=== PATIENT | male | born 1945 | race Caucasian/White ===

== ENCOUNTER → 2022-04-25 | Outpatient (CLI) | payer MEDICARE, BC ==
[2022-04-25 09:53] VITALS: BP 125/76; PULSE 56; RESP 16; TEMP 98.2
--- NOTE | 2022-04-25 15:26 | P.PAINPG ---
PQRS Measure Charge Sheet Comment: HISTORY OF PRESENT ILLNESS: 76 yr old male as a referral from Dr Capps presents today w severe and chronic LBP x 2 yrs secondary to for evaluation. Pt states pain level is at 10 /10 in intensity, constant, localized in the lower aspect of the lumbar spine, localized in the lower lumbar spine, sharp in character w shooting pain towards the BL glutes. Pain is provoked by home exercise regimen. Pain is alleviated by meds (Maxie 5/325mg, Mobic), OTC pain patches, repositioning and rest. PMH: OA, HTN, Hypercholesterolemia, Hypothyroidism, Nephrolithiasis, Vitamin D Deficiency, GERD, Parkinsons Disorder, Dementia PSH: Hernia Repair, Cholecystectomy, Knee Surgery, Prostate CA Resection SH: Occasional ETOH use, No tobacco use, No illicit drug use FH: HTN, DM. All: See list Meds: ASA, Mobic REVIEW OF ORGAN SYSTEMS: CONSTITUTIONAL: No fevers or chills. No recent weight loss. NEUROLOGICAL: + numbness and tingling along the distal extremities. No seizure disorders or headaches. MUSCULOSKELETAL: + pain PSYCHIATRIC: Denies current depression or suicidal thoughts. Physical Examinations : Constitutional : Cooperative , not in acute distress . Neurologic : Cranial nerve II to XII intact. No focal neurological deficits. Psychiatric : alert & oriented x 3. Matching mood & appropriate affect. Judgment & insight intact. Musculoskeletal : Cervical Spine Motor strength in the deltoid and biceps: Normal right side. Normal Left side Motor strength biceps and the wrist extensors: Normal right side . Normal left side Motor strength in the triceps muscle: Normal right side. Normal left side Deep tendon reflexes: Normal at the biceps. Normal at Brachioradialis. Normal at triceps Vertebral body tenderness to deep palpation over Cervical facet loading test: positive bilaterally Spurling test: positive bilaterally Neck distraction test: positive bilaterally Greer sign: positive bilaterally Lumbar spine Motor strength lower extremities ,thigh and legs 5/5 Right side , 5/5 Left side Deep tendon reflexes : Normal Knee Jerk. Normal Ankle Jerk Vertebral body tenderness over L1 Lumbar facet Loading Test: positive Right / positive Left Range of motion of the lumbar spine Flexion 30 degrees, extension 10 degrees Straight Leg Raise test: Left/ Right positive at degree Emerson test: positive right / positive left. Severe tenderness over the Sacroiliac joint on the Right / Left sides Gaenslen test: positive bilaterally Seated flexion test: positive bilaterally. Sacral spine : Severe tenderness over the Sacroiliac joint: right side / left side Range of motion: Flexion of the lumbar spine <60 degrees Range of motion: Extension of the lumbar spine <20 degrees Gaenslen's Test positive Tien's Test positive Emerson test: positive right side / left side Thigh Thrust Test Sacral Thrust Test Imaging: MRI with and without contrast of the lumbar spine, sacrum and coccyx from 03/18/22 reviewed Assessment/ Plan : Lumbar DDD Recommendation of NANCY L1-L2 injections. May need a series, up to 3 within a 6mo period, for optimal pain relief. Risks, benefits of procedure discussed and patient verbalized understanding. Admits to aspirin or anti- coagulant use or medical history of diabetes. Protocol for discontinuation/ continuation of medications lali procedure discussed. All questions answered. I have spent greater than 30 minutes on patient care today. Dr Batista was available by phone for the evaluation of this patient. The time was used to review the medical records including relevant urine studies and Prescription history (MAPs), review of the available imaging, evaluation and examination of the patient, coordination of care with the medical staff and if applicable referring physicians, as well as creation of the medical record Controlled Substance Measures - Controlled Substance Measures Is patient prescribed a controlled substance at discharge?: No
== END ==
LOC: PNWHC3 08:56
PROVIDERS: ATTEND Specialist
DX: M51.36 Other intervertebral disc degeneration, lumbar region (principal); M19.90 Unspecified osteoarthritis, unspecified site; I10 Essential (primary) hypertension; E78.00 Pure hypercholesterolemia, unspecified; K21.9 Gastro-esophageal reflux disease without esophagitis; G20 Parkinson's disease
CPT/HCPCS: 99202

== ENCOUNTER 2022-07-16 12:01 | Day surgery (SDC) | payer MEDICARE, BC ==
[2022-07-12 09:57] VITALS: BMI 32.5
[2022-07-16] MEDS ORDERED: LACTATED RINGERS 1,000 ML IV ONE ×2 (12:42)
[2022-07-16 12:44] VITALS: TEMP 98.2
--- NOTE | 2022-07-16 13:02 | P.PCN ---
Date of Procedure: 07/16/22 Procedure(s) Performed: PREOPERATIVE DIAGNOSIS: 1- Lumbar Degenerative Disc Diseases 2-Lumbar Radiculopathy. POSTOPERATIVE DIAGNOSIS: Same as preop diagnosis. PROCEDURE 1. Lumbar epidural steroid injection under fluoroscopic guidance at the L1-2 level. (Fluoroscopy imaging was available in radiology department) 2. Lumbar epidurogram. ANESTHESIA: moderate sedation with intravenous Versed 1 mg . Sedation start time : 1251 Sedation end time : 1257 EBL: Minimal PROCEDURE INDICATION: The patient with low back pain and radiculitis symptoms unresponsive to conservative treatment. Fluoroscopy was used to optimize vi sualization of the needle placement and to maximize safety. PROCEDURE DESCRIPTION / TECHNIQUE: The patient was seen and identified in the preoperative area. Risks, benefits, complications including but not limited to infections ,bleeding ,allergic reaction to the medications ,nerve damage and not complete pain releife , and alternatives were discussed with the patient. The patient agreed to proceed with the procedure and signed the consent. IV was started, and vital signs were stable. Patient was taken to the OR and time out was completed. The patient was placed in the prone position on procedure table and a pillow was placed under the abdomen to reduce lumbar lordosis. The lumbosacral area was prepped and draped in the usual sterile fashion.ere closely monitored during the procedure. Conscious sedation was used during the procedure to decrease patients anxiety. Vital signs was monitered during the entire procedure. Using anterior-posterior fluoroscopy, the L1-2 interlaminar space was identified and the skin over this site was marked and then infiltrated with 1% lidocaine subcutaneously. Subsequently, a 20-gauge Tuohy epidural needle was inserted and advanced toward the epidural space using the ``Loss of resistance technique and guided by AP and lateral fluoroscopy. The correct needle position in the epidural space was verified with the injection of 2 mL of the water soluble contrast dye Isovue 200 contrast and observing an excellent epidurogram with the epidural spread of the dye, after negative aspiration for blood and CSF and in the absence of paresthesias. Again after negative aspiration, a 6 ml mixture containing 40 mg of Depo-medrol ( Preservetive Free ), and 2 ml of preservative free Normal Saline, and 2 ml of preservative free lidocaine 1% solution was injected and a washout of epidurogram was seen. Needle was withdrawn intact, skin was cleansed, and bandages were applied. COMPLICATIONS: None DISPOSITION / PLANS: The patient was placed in a supine position and transferred to the recovery area in a stable condition for observation. There was no evidence of lower extremity motor or sensory deficit after the procedure. Patient was discharged from the recovery room after meeting discharge criteria. Home discharge instructions were given to the patient by the staff. The patient was reexamined prior to discharge. The patient will schedule a follow up in the clinic in 2-4 weeks.
[2022-07-16] MEDS ORDERED: IV FLUID CONTINUATION 1,000 ML IV ONE (13:03)
[2022-07-16] MEDS ORDERED: LACTATED RINGERS 1,000 ML IV SCH (13:13)
[2022-07-16] MEDS ORDERED: LIDOCAINE 1% (10MG/ML) FOR IV START INTRADERMA PRN (13:13)
[2022-07-16 13:19] VITALS: BP 100/64; PULSE 59; RESP 14
--- NOTE | 2022-07-16 13:44 | FL ---
EXAMINATION TYPE: FL guided pain mgmt statistic DATE OF EXAM: 07/16/2022 HISTORY: Fluoroscopy time DAP .[id number] of fluoroscopy provided. IMPRESSION: 1. Fluoroscopy time.
== END 2022-07-16 13:37 | disposition home or self-care (01) ==
LOC: ORPAIN 12:01
PROVIDERS: ATTEND Specialist
DX: M51.16 Intervertebral disc disorders with radiculopathy, lumbar region (principal); Z88.7 Allergy status to serum and vaccine
CPT/HCPCS: 62323

== ENCOUNTER → 2022-08-07 | Outpatient (CLI) | payer MEDICARE, BC ==
[2022-08-07 13:49] VITALS: BP 128/78; PULSE 68; RESP 18; TEMP 98
--- NOTE | 2022-08-07 14:59 | P.PAINPG ---
PQRS Measure Charge Sheet Comment: A 76 yr old male w at side with a history of severe and chronic LBP secondary to lumbar DDD and spondylosis with facet arthropathy without myelopathy presents today for evaluation s/p NANCY L1-L2. Pt states he experienced % pain relief x 3 wks s/p procedure. Pain level is provoked at 6 /10 in intensity, constant, localized in the lumbar spine, dull in character w shooting towards the BL thighs. Pain is provoked by movement, bending. Pain is alleviated with PT years ago, heat, topical, sitting, repositioning and rest. Interventional pain procedures completed include NANCY L1-L2 Patient is currently on topical pain patch Patient denies any side effects of the medication(s), denies excessive drowsi ness or sleepiness, denies suicidal ideation and reports that the current pain medication is helping to control the pain and improve activities of daily living. Patient denies any motor or sensory deficits. Patient denies any fever or night sweats, denies any change in the bowel movements or urination. Physical Examination: -Constitutional: Cooperative. Not in acute distress . - Neurologic: Cranial nerve II to XII intact. No focal neurological deficits. - Psychatric: Alert & oriented x 3. Matching mood & appropriate affect. Judgment and insight intact. - Musculoskeletal: Cervical spine: Muscle bulk/ tone/ strength in the bilateral upper extremities normal Vertebral body tenderness to palpation over Spurling test positive Distraction test positive Facet loading test positive TTP Thoracic spine Muscle bulk / tone/ strength in the bilateral paraspinal muscles normal Vertebral body tender to palpation over Facet loading test positive TTP Lumbar spine: Motor bulk/ tone/ strength lower extremities , thigh and legs : 5/5 Deep tendon reflexes : Normal Knee Jerk. Normal Ankle Jerk . Vertebral body tenderness to palpation over L2 Lumbar Facet Loading Test positive Straight Leg Raise: positive at 30 degrees right side/ left side Gaenslen's Test positive Sacral spine : Severe tenderness over the Sacroiliac joint: right side / left side Range of motion: Flexion of the lumbar spine <60 degrees Range of motion: Extension of the lumbar spine <20 degrees Gaenslen's Test positive right side / left side Emerson test: positive right side / left side Thigh Thrust Test positive right side / left side Sacral Thrust Test positive right side / left side Assessment and plan: Chronic LBP secondary to lumbar DDD, spondylosis with facet arthropathy without myelopathy Recommendation of NANCY L2-L3 #2. May need a series of injections for optimal pain relief. Risks, benefits of procedure discussed and pt verbalized understanding. Admits to anticoagulant use or medical history of diabetes. Protocol for discontinuation/ continuation of medications lali procedure discussed. Colbert 5/325mg #15 NR e scribed. Use, side effects, adverse reactions and safe storage discussed. Pt acknowledged understanding. All questions answered. I have spent less than 30 minutes on patient care today. Dr Batista was available by phone for the evaluation of this patient. The time was used to review the medical records including relevant urine studies and Prescription history (MAPs), review of the available imaging, evaluation and examination of the patient, coordination of care with the medical staff and if applicable referring physicians, as well as creation of the medical record PQRS Narrative: Hx Alcohol Use (MH) No Home Medications: Ambulatory Orders Aspirin EC [Ecotrin Low Dose] 81 mg PO DAILY 04/25/22 Atorvastatin Calcium [Lipitor] 40 mg PO DAILY 04/25/22 Carbidopa-Levodopa 25-100 mg [Sinemet 25-100] 1 each PO TID 04/25/22 Docusate [Colace] 100 mg PO DAILY 04/25/22 Levothyroxine Sodium [Synthroid] 50 mcg PO DAILY 04/25/22 Memantine [Namenda] 10 mg PO DAILY 04/25/22 Propranolol HCl [Inderal Xl] 120 mg PO DAILY 04/25/22 busPIRone HCL 5 mg PO BID 04/25/22 Ascorbic Acid [Vitamin C] 500 mg PO DAILY 05/24/22 Multivit-Mins/Iron/Folic/Lycop [Centrum Men's Tablet] 1 each PO DAILY 05/24/22 Vitamin B Complex 1 each PO DAILY 05/24/22 icosapent ethyL [Icosapent Ethyl] 2 tab PO BID 05/24/22 Famotidine 20 mg PO ONCE 07/16/22 HYDROcodone/APAP 5-325MG [Colbert 5-325] 1 tab PO Q4H PRN 3 Days #15 tab 08/07/22 Controlled Substance Measures - Controlled Substance Measures Is patient prescribed a controlled substance at discharge?: Yes When asked, does pt state using other controlled substances?: Yes If prescribed controlled substance>3 days was MAPS reviewed?: Prescribed <3 Days If Rx opioid, was Start Talking consent form obtained?: Yes If opioid is for acute pain is fill amount 7 days or less?: Yes Was information provided regarding opioid addiction?: Yes
== END ==
LOC: PNWHC3 12:53
PROVIDERS: ATTEND Specialist
DX: M51.36 Other intervertebral disc degeneration, lumbar region (principal); M47.816 Spondylosis without myelopathy or radiculopathy, lumbar region; G89.29 Other chronic pain; Z79.82 Long term (current) use of aspirin; Z88.7 Allergy status to serum and vaccine
CPT/HCPCS: 99211

== ENCOUNTER 2022-08-29 11:32 | Day surgery (SDC) | payer MEDICARE, BC ==
[2022-08-29 11:55] VITALS: TEMP 97.8
[2022-08-29] MEDS ORDERED: IOPAMIDOL M200 10 ML VIAL ONE (12:30)
[2022-08-29] MEDS ORDERED: methylPREDNISolone ACETATE 80 MG/ML 1 ML VIAL ONE (12:30)
[2022-08-29] MEDS ORDERED: LACTATED RINGERS 1,000 ML IV SCH (12:45)
--- NOTE | 2022-08-29 12:49 | P.PCN ---
Date of Procedure: 08/29/22 Description of Procedure: Procedure: 1. L2-L3 Epidural steroid injection under fluoroscopic guidance, 2. Lumbar epidurogram PREOPERATIVE DIAGNOSIS: Lumbar degenerative disc disease, and Lumbar radiculopathy, lumbar spondylosis without myelopathy. POSTOPERATIVE DIAGNOSIS: Lumbar degenerative disc disease, and Lumbar radiculopathy, lumbar spondylosis without myelopathy. SURGEON: Meseret Starr ANESTHESIA: Local with 1% lidocaine, and IV sedation: None EBL: None. Specimen removed: None Fluoroscopic image: saved to electronic medical records PROCEDURE INDICATION: The patient had history of Lumbar degenerative disc disease and Lumbar radiculopathy. Failed to conservative therapy. Presented for epidural steroid injection. PROCEDURE DESCRIPTION: The patient was seen and identified in the preoperative area. Risks, benefits, complications, and alternatives were discussed with the patient. The patient agreed to proceed with the procedure and signed the consent. IV was started, and vital signs were stable. Patient was taken to the procedure area, and time out was completed. The patient was placed in the prone position on procedure table and a pillow was placed under the abdomen to reduce lumbar lordosis. The lumbosacral area was prepped and draped in the usual sterile fashion. Critical pause was taken. Vital signs were closely monitored during the procedure. Using anterior-posterior fluoroscopy, the L2-L3 interlaminar space was identified, and skin and deeper tissues were localized with 1% lidocaine. Using anterior-posterior fluoroscopy, lateral fluoroscopy, and [id number] technique, a 20 gauge 3.5 Tuohy epidural needle entered the epidural space. After negative aspiration of CSF and blood with no paresthesias, 2 ml of [id number] contrast dye was injected and an excellent epidurogram was seen. Again after negative aspiration of CSF and blood with no paresthesias, 8 mL of block solution was injected into the epidural space. Block solution contained 80 mg of Depo-Medrol, and 6 mL of preservative-free normal saline. Needle was withdrawn intact, skin was cleansed, and bandages were applied. COMPLICATIONS: None. DISPOSITION / PLANS: The patient was placed in a supine position and transferred to the recovery area in a stable condition for observation. Patient was discharged from the recovery room after meeting discharge criteria. Home discharge instructions given to the patient by the staff. The patient was reexamined prior to discharge. The patient will schedule a follow up in the clinic in 4 weeks.
--- NOTE | 2022-08-29 13:02 | FL ---
EXAMINATION TYPE: FL guided pain mgmt statistic DATE OF EXAM: 08/29/2022 HISTORY: Fluoroscopy time Total dose area product (DAP) in mGy*m? (or similar): 0.50303 IMPRESSION: 1. Fluoroscopy time.
[2022-08-29 13:10] VITALS: BP 149/89; PULSE 60; RESP 18
== END 2022-08-29 13:22 | disposition home or self-care (01) ==
LOC: ORPAIN 11:32
DX: M51.16 Intervertebral disc disorders with radiculopathy, lumbar region (principal); M47.26 Other spondylosis with radiculopathy, lumbar region; I10 Essential (primary) hypertension; E78.5 Hyperlipidemia, unspecified; E03.9 Hypothyroidism, unspecified; G20 Parkinson's disease; Z90.49 Acquired absence of other specified parts of digestive tract; Z98.890 Other specified postprocedural states; Z79.82 Long term (current) use of aspirin; Z79.899 Other long term (current) drug therapy; Z79.890 Hormone replacement therapy; Z88.7 Allergy status to serum and vaccine
CPT/HCPCS: 62323; J1040; Q9966; 99152

== ENCOUNTER → 2022-10-10 | Outpatient (CLI) | payer MEDICARE, BC ==
[2022-10-10 13:31] VITALS: BP 109/72; PULSE 80; RESP 16; TEMP 98.4
--- NOTE | 2022-10-10 15:03 | P.PAINPG ---
PQRS Measure Charge Sheet Comment: A 77 yr old male w at side with a history of severe and chronic LBP secondary to lumbar DDD and spondylosis with facet arthropathy without myelopathy presents today for evaluation s/p NACNY L2-L3. Pt states he experienced 100% pain relief x 3 wks s/p procedure. Pain level is provoked at 7/10 in intensity, constant, localized in the center lumbar spine, sore in character w shooting pain. Pain is provoked by lifting, bending. Pain is alleviated with PT in 2019, medications, topical, repositioning, reclining and rest. Interventional pain procedures completed include NANCY L2-L3 x1, L1-L2 x2 Patient is currently on Aleve, Salon Pas patches Patient denies any side effects of the medication(s), denies excessive drowsiness or sleepiness, denies suicidal ideation and reports that the current pain medication is helping to control the pain and improve activities of daily living. Patient denies any motor or sensory deficits. Patient denies any fever or night sweats, denies any change in the bowel movements or urination. Physical Examination: -Constitutional: Cooperative. Not in acute distress . - Neurologic: Cranial nerve II to XII intact. No focal neurological deficits. - Psychatric: Alert & oriented x 3. Matching mood & appropriate affect. Judgment and insight intact. - Musculoskeletal: Cervical spine: Muscle bulk/ tone/ strength in the bilateral upper extremities normal Vertebral body tenderness to palpation over Spurling test positive Distraction test positive Facet loading test positive TTP Thoracic spine Muscle bulk / tone/ strength in the bilateral paraspinal muscles normal Vertebral body tender to palpation over Facet loading test positive TTP Lumbar spine: Motor bulk/ tone/ strength lower extremities , thigh and legs : 5/5 Deep tendon reflexes : Normal Knee Jerk. Normal Ankle Jerk . Vertebral body tenderness to palpation over L3 Shrestha Test positive Lumbar Facet Loading Test positive Straight Leg Raise: positive at 30 degrees right side/ left side Gaenslen's Test positive Sacral spine : Severe tenderness over the Sacroiliac joint: right side / left side Range of motion: Flexion of the lumbar spine <60 degrees Range of motion: Extension of the lumbar spine <20 degrees Gaenslen's Test positive right side / left side Emerson test: positive right side / left side Thigh Thrust Test positive right side / left side Sacral Thrust Test positive right side / left side Assessment and plan: Chronic LBP secondary to lumbar DDD, spondylosis with facet arthropathy without myelopathy Recommendation of NANCY L2-L3 #4. May need a series of injections, up to 4 within a 12 mo period, for optimal pain relief. Risks, benefits of procedure discussed and pt verbalized understanding. Admits to anticoagulant use or medical history of diabetes. Protocol for discontinuation/ continuation of medications lali procedure discussed. Minimal anesthesia provided, if clinically indicated, consisting of Versed and Fentanyl. All questions answered. I have spent less than 30 minutes on patient care today. Dr Batista was available by phone for the evaluation of this patient. The time was used to review the medical records including relevant urine studies and Prescription history (MAPs), review of the available imaging, evaluation and examination of the patient, coordination of care with the medical staff and if applicable referring physicians, as well as creation of the medical record PQRS Narrative: Hx Alcohol Use (MH) No Home Medications: Ambulatory Orders Aspirin EC [Ecotrin Low Dose] 81 mg PO DAILY 04/25/22 Atorvastatin Calcium [Lipitor] 40 mg PO DAILY 04/25/22 Carbidopa-Levodopa 25-100 mg [Sinemet 25-100] 1 each PO TID 04/25/22 Docusate [Colace] 100 mg PO DAILY 04/25/22 Levothyroxine Sodium [Synthroid] 50 mcg PO DAILY 04/25/22 Memantine [Namenda] 10 mg PO DAILY 04/25/22 Propranolol HCl [Inderal Xl] 120 mg PO DAILY 04/25/22 busPIRone HCL 5 mg PO BID 04/25/22 Ascorbic Acid [Vitamin C] 500 mg PO DAILY 05/24/22 Multivit-Mins/Iron/Folic/Lycop [Centrum Men's Tablet] 1 each PO DAILY 05/24/22 Vitamin B Complex 1 each PO DAILY 05/24/22 icosapent ethyL [Icosapent Ethyl] 2 tab PO BID 05/24/22 Famotidine 20 mg PO DAILY 07/16/22 HYDROcodone/APAP 5-325MG [[place] 5-325] 1 tab PO Q4H PRN 3 Days #15 tab 08/07/22 Controlled Substance Measures - Controlled Substance Measures Is patient prescribed a controlled substance at discharge?: No
== END ==
LOC: PNWHC3 13:07
PROVIDERS: ATTEND Specialist
DX: M51.36 Other intervertebral disc degeneration, lumbar region (principal); M47.816 Spondylosis without myelopathy or radiculopathy, lumbar region; G89.29 Other chronic pain; Z79.82 Long term (current) use of aspirin; Z88.7 Allergy status to serum and vaccine
CPT/HCPCS: 99211

== ENCOUNTER 2022-11-28 09:20 | Day surgery (SDC) | payer MEDICARE, BC ==
[2022-11-20 11:13] VITALS: BMI 33.4
[~2022-11-28 09:20] MED LIST: LACTATED RINGERS 1,000 ML IV SCH
[2022-11-28 09:41] VITALS: RESP 18; TEMP 97
[2022-11-28] MEDS ORDERED: IOPAMIDOL M200 10 ML VIAL ONE (09:56)
[2022-11-28] MEDS ORDERED: methylPREDNISolone ACETATE 40 MG/ML 1 ML VIAL ONE (09:56)
--- NOTE | 2022-11-28 10:03 | P.PCN ---
Date of Procedure: 11/28/22 Procedure(s) Performed: PREOPERATIVE DIAGNOSIS: 1- Lumbar Degenerative Disc Diseases 2-Lumbar Radiculopathy. POSTOPERATIVE DIAGNOSIS: Same as preop diagnosis. PROCEDURE 1. Lumbar epidural steroid injection under fluoroscopic guidance at the L2-3 level. (Fluoroscopy imaging was available in radiology department) 2. Lumbar epidurogram. ANESTHESIA: Local anesthesia with lidocaine 1% 3 mL only EBL: Minimal PROCEDURE INDICATION: The patient with low back pain and radiculitis symptoms unresponsive to conservative treatment. Fluoroscopy was used to optimize visualization of the needle placement and to maximize safety. PROCEDURE DESCRIPTION / TECHNIQUE: The patient was seen and identified in the preoperative area. Risks, benefits, complications including but not limited to infections ,bleeding ,allergic reaction to the medications ,nerve damage and not complete pain releife , and alternatives were discussed with the patient. The patient agreed to proceed with the procedure and signed the consent, and vital signs were stable. Patient was taken to the OR and time out was completed. The patient was placed in the prone position on procedure table and a pillow was placed under the abdomen to reduce lumbar lordosis. The lumbosacral area was prepped and draped in the usual sterile fashion.ere closely monitored during the procedure. Vital signs was monitered during the entire procedure. Using anterior-posterior fluoroscopy, the L2-3 interlaminar space was ident ified and the skin over this site was marked and then infiltrated with 1% lidocaine subcutaneously. Subsequently, a 20-gauge Tuohy epidural needle was inserted and advanced toward the epidural space using the ``Loss of resistance technique and guided by AP and lateral fluoroscopy. The correct needle position in the epidural space was verified with the injection of 2 mL of the water soluble contrast dye Isovue 200 contrast and observing an excellent epidurogram with the epidural spread of the dye, after negative aspiration for blood and CSF and in the absence of paresthesias. Again after negative aspiration, a 6 ml mixture containing 40 mg of Depo-medrol ( Preservetive Free ), and 2 ml of preservative free Normal Saline, and 2 ml of preservative free lidocaine 1% solution was injected and a washout of epidurogram was seen. Needle was withdrawn intact, skin was cleansed, and bandages were applied. COMPLICATIONS: None DISPOSITION / PLANS: The patient was placed in a supine position and transferred to the recovery area in a stable condition for observation. There was no evidence of lower extremity motor or sensory deficit after the procedure. Patient was discharged from the recovery room after meeting discharge criteria. Home discharge instructions were given to the patient by the staff. The patient was reexamined prior to discharge. The patient will schedule a follow up in the clinic in 2-4 weeks.
[2022-11-28 10:08] VITALS: BP 156/89; PULSE 89
--- NOTE | 2022-11-28 11:01 | FL ---
Intraoperative/procedural fluoroscopic services were provided for lumbar epidural steroid injection. Total fluoroscopy time is 2.0 seconds with a total of 1 submitted image to PACS. Total DAP 0.05864 mG ym2. Please see the operative note for further details.
== END 2022-11-28 10:22 | disposition home or self-care (01) ==
LOC: ORPAIN 09:20
PROVIDERS: ATTEND Specialist
DX: Z79.82 Long term (current) use of aspirin (principal)
CPT/HCPCS: 62323; J1030; Q9966

== ENCOUNTER → 2022-12-18 | Outpatient (CLI) | payer MEDICARE, BC ==
[2022-12-18 12:20] VITALS: BP 130/88; PULSE 91; RESP 16; TEMP 97.8
--- NOTE | 2022-12-19 07:57 | P.PAINPG ---
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 Pt states he experienced 95% pain relief x 3 wks s/p procedure. Pain level is provoked at 8/10 in intensity, constant, localized in the center lumbar spine, sore in character w shooting pain towards the hips. Pain is provoked by lifting, bending. Pain is alleviated with PT in 2019, medications, topical, use of a lumbar support brace, repositioning, reclining and rest. Oswestry axial pain score of . Interventional pain procedures completed include NANCY L2-L3 x2, L1-L2 x2 Patient is currently on Diclofenac tabs, Aleve, Salon Pas patches Patient denies any side effects of the medication(s), denies excessive drowsiness or sleepiness, denies suicidal ideation and reports that the current pain medication is helping to control the pain and improve activities of daily living. Patient denies any motor or sensory deficits. Patient denies any fever or night sweats, denies any change in the bowel movements or urination. Physical Examination: -Constitutional: Cooperative. Not in acute distress . - Neurologic: Cranial nerve II to XII intact. No focal neurological deficits. - Psychatric: Alert & oriented x 3. Matching mood & appropriate affect. Judgment and insight intact. - Musculoskeletal: Cervical spine: Muscle bulk/ tone/ strength in the bilateral upper extremities normal Vertebral body tenderness to palpation over Spurling test positive Distraction test positive Facet loading test positive TTP Thoracic spine Muscle bulk / tone/ strength in the bilateral paraspinal muscles normal Vertebral body tender to palpation over Facet loading test positive TTP Lumbar spine: Motor bulk/ tone/ strength lower extremities , thigh and legs : 5/5 Deep tendon reflexes : Normal Knee Jerk. Normal Ankle Jerk . Vertebral body tenderness to palpation over L3 Shrestha Test positive Lumbar Facet Loading Test positive Straight Leg Raise: positive at 30 degrees right side/ left side Gaenslen's Test positive Sacral spine : Severe tenderness over the Sacroiliac joint: right side / left side Range of motion: Flexion of the lumbar spine <60 degrees Range of motion: Extension of the lumbar spine <20 degrees Gaenslen's Test positive right side / left side Emerson test: positive right side / left side Thigh Thrust Test positive right side / left side Sacral Thrust Test positive right side / left side Assessment and plan: Chronic LBP secondary to lumbar DDD, spondylosis with facet arthropathy without myelopathy Recommendation of medication management. Percocet 5/325mg #15 NR, Use, side effects, adverse reactions and safe storage discussed. Pt acknowledged understanding. Pt reached limit of 4 ESIs since May 2022 so will not intervene additionally as such. Scheduled to have hip replacement surgery in Dec 2022. All questions answered. I have spent less than 30 minutes on patient care today. Dr Batista was available by phone for the evaluation of this patient. The time was used to review the medical records including relevant urine studies and Prescription history (MAPs), review of the available imaging, evaluation and examination of the patient, coordination of care with the medical staff and if applicable referring physicians, as well as creation of the medical record PQRS Narrative: Hx Alcohol Use (MH) No Home Medications: Ambulatory Orders Aspirin EC [Ecotrin Low Dose] 81 mg PO DAILY 04/25/22 Atorvastatin Calcium [Lipitor] 40 mg PO HS 04/25/22 Carbidopa-Levodopa 25-100 mg [Sinemet 25-100] 0.5 tab PO TID 04/25/22 Docusate [Colace] 100 mg PO DAILY 04/25/22 Levothyroxine Sodium [Synthroid] 50 mcg PO DAILY 04/25/22 Memantine [Namenda] 10 mg PO DAILY 04/25/22 busPIRone HCL 5 mg PO BID 04/25/22 Ascorbic Acid [Vitamin C] 500 mg PO DAILY 05/24/22 Multivit-Mins/Iron/Folic/Lycop [Centrum Men's Tablet] 1 each PO DAILY 05/24/22 Vitamin B Complex 1 each PO DAILY 05/24/22 Famotidine 20 mg PO DAILY 07/16/22 Acetaminophen [Tylenol Arthritis] 1 - 2 tab PO DIRECTED PRN 11/20/22 Fluticasone Nasal [place] [Flonase Nasal [place]] 1 spray EA NOSTRIL DIRECTED PRN 11/20/22 Gabapentin [Neurontin] 300 mg PO TID 11/20/22 HYDROcodone/APAP 5-325MG [Paulina 5-325] 1 tab PO BID PRN 11/20/22 oxyCODONE HCL/ACETAMINOPHEN [Percocet 5-325 mg] 1 tab PO Q4HR PRN 3 Days #15 tab 12/18/22 Controlled Substance Measures - Controlled Substance Measures Is patient prescribed a controlled substance at discharge?: Yes When asked, does pt state using other controlled substances?: No If prescribed controlled substance>3 days was MAPS reviewed?: Prescribed <3 Days
== END ==
LOC: PNWHC3 11:13
PROVIDERS: ATTEND Specialist
DX: M51.36 Other intervertebral disc degeneration, lumbar region (principal); M47.816 Spondylosis without myelopathy or radiculopathy, lumbar region; G89.29 Other chronic pain; Z79.82 Long term (current) use of aspirin; Z88.7 Allergy status to serum and vaccine
CPT/HCPCS: 99211

== ENCOUNTER → 2023-06-16 | Outpatient (CLI) | payer MEDICARE, BC ==
[2023-06-16 15:48] LABS: Partial Thromboplastin Time 23.7 sec (22.0-30.0)
[2023-06-16 18:25] LABS: HCT 41.5 % (39.6-50.0); HGB 13.4 g/dL (13.0-17.0); MCH 30.7 pg (27.0-32.0); MCHC 32.3 g/dL (32.0-37.0); Mean Platelet Volume 9.9 FL (9.5-12.2); NRBC Per 100 WBC 0 X 10*3/uL (0.00-0.01); Platelet Count 276 X 10*3/uL (140-440); RBC 4.37 X 10*6/uL (4.40-5.60); RDW 12.4 % (11.5-14.5); WBC 5.02 X 10*3/uL (4.50-10.00)
[2023-06-16 18:40] LABS: ALT 6 U/L (10-49); AST 21 U/L (14-35); Albumin 4.3 g/dL (3.8-4.9); Albumin/Globulin Ratio 1.87 Ratio (1.60-3.17); Alkaline Phosphatase 83 U/L (41-126); BUN/Creat Ratio 16.12 Ratio (12.00-20.00); Blood Urea Nitrogen 12.9 mg/dL (9.0-27.0); Calcium 9.5 mg/dL (8.7-10.3); Carbon Dioxide 26.8 mmol/L (21.6-31.8); Chloride 107 mmol/L (96-109); Globulin 2.3 g/dL (1.6-3.3); Glucose 128 mg/dL (70-110); Potassium 4.2 mmol/L (3.5-5.5); Sodium 144 mmol/L (135-145); Total Bilirubin 0.6 mg/dL (0.3-1.2); Total Protein 6.6 g/dL (6.2-8.2)
== END | disposition home or self-care (01) ==
LOC: LABPAT 14:28
PROVIDERS: ATTEND Orthopaedic Surgery
DX: Z01.818 Encounter for other preprocedural examination (principal); I44.0 Atrioventricular block, first degree; E11.9 Type 2 diabetes mellitus without complications; R94.31 Abnormal electrocardiogram [ECG] [EKG]; Z22.322 Carrier or suspected carrier of Methicillin resistant Staphylococcus aureus
CPT/HCPCS: 36415; 80053; 83036; 85027; 85610; 85730; 86850; 86900; 86901; 87070; 93005

== ENCOUNTER 2023-06-25 10:52 | Inpatient (IN) | payer MEDICARE, BC ==
[2023-06-20 10:15] VITALS: BMI 32.6
[~2023-06-25 10:52] MED LIST changes: +HYDROmorphone 0.5 MG/0.5 ML SYRINGE IVP PRN; -LACTATED RINGERS 1,000 ML IV SCH; +LIDOCAINE 1% (10MG/ML) FOR IV START INTRADERMA PRN; +TRANEXAMIC 1,000 MG/100ML-NACL 1,000 MG in SALINE 1 100ML.BAG IV PRN; +TRANEXAMIC 1,000 MG/100ML-NACL 1,000 MG in SALINE 1 100ML.BAG IVPB PRN; +fentaNYL (PF) 50 MCG/ML 2 ML AMP IVP PRN
[2023-06-25] MEDS: DOCUSATE 100 MG CAP PO PRN (12:17)
[2023-06-25] MEDS: ACETAMINOPHEN TAB 500 MG TAB PO PRN (12:17)
[2023-06-25] MEDS: oxyCODONE ER 10 MG TAB.ER.12H PO PRN (12:17)
[2023-06-25] MEDS: MIDAZOLAM 2 MG/2 ML VIAL IV PRN (12:20)
[2023-06-25] MEDS: KETOROLAC 15 MG/ML 1 ML VIAL IVP PRN (12:30)
[2023-06-25] MEDS: ONDANSETRON 4 MG/2 ML VIAL IVP PRN (12:30)
[2023-06-25] MEDS: DEXAMETHASONE SOD PHOSPHATE 10 MG/ML 1 ML VIAL IV PRN (12:30)
[2023-06-25] MEDS: LACTATED RINGERS 1,000 ML IV SCH (12:32)
[2023-06-25] MEDS: FAMOTIDINE 20 MG/2 ML VIAL IVP PRN (12:32)
[2023-06-25] MEDS ORDERED: ROPIVACAINE 5 MG/ML 30 ML VIAL ONE (12:47)
[2023-06-25] MEDS ORDERED: GLYCOPYRROLATE 0.2 MG/ML 2 ML VIAL ONE (12:47)
[2023-06-25] MEDS ORDERED: TRANEXAMIC 1,000 MG/100ML-NACL PREMIX BAG ONE (12:47)
[2023-06-25] MEDS ORDERED: NEOSTIGMINE 1 MG/ML 10 ML VIAL ONE (12:47)
[2023-06-25] MEDS ORDERED: ePHEDrine 50 MG/ML 1 ML VIAL ONE (12:47)
[2023-06-25] MEDS ORDERED: PROPOFOL 10 MG/ML 20 ML VIAL IV ONE (12:47)
[2023-06-25] MEDS ORDERED: ROCURONIUM 10 MG/ML (5 ML VIAL) IV ONE (12:47)
[2023-06-25] MEDS ORDERED: fentaNYL (PF) 50 MCG/ML 2 ML AMP ONE (12:47)
[2023-06-25] MEDS ORDERED: LIDOCAINE 1% INJ 10MG/ML (20 ML MDV) ONE (12:47)
[2023-06-25] MEDS ORDERED: DEXAMETHASONE SOD PHOSPHATE 10 MG/ML 1 ML VIAL ONE (12:47)
[2023-06-25] MEDS: ROPIVACAINE/EPI/CLONIDINE/KET 50 ML SYRINGE MISCELLANE PRN (13:44)
[2023-06-25] MEDS ORDERED: NALOXONE 0.4 MG/ML 1 ML VIAL IV PRN (15:07)
[2023-06-25] MEDS ORDERED: MAGNESIUM HYDROXIDE 2,400 MG/30 ML CUP PO PRN (15:07)
[2023-06-25] MEDS ORDERED: HYDROmorphone 0.5 MG/0.5 ML SYRINGE IVP PRN ×2 (15:07)
--- NOTE | 2023-06-25 15:44 | XR ---
EXAMINATION TYPE: XR Hip Limited LT DATE OF EXAM: 06/25/2023 Comparison: None Clinical History: 77 year-old male Status post hip surgery, assess surgical alignment Findings: Image shows placement of left total hip arthroplasty. Both acetabular cup and femoral stem components of the prosthesis are well-seated without periprosthetic fracture. Alignment grossly anatomic. Soft tissue air related to recent operation. Impression: Uncomplicated postoperative appearance left total hip vertebroplasty.
[2023-06-25] MEDS: SODIUM CHLORIDE 0.9% 1,000 ML IV SCH (16:17)
[2023-06-25] MEDS: HYDROmorphone 0.5 MG/0.5 ML SYRINGE IVP PRN (16:51)
--- NOTE | 2023-06-25 17:18 | XR ---
EXAMINATION TYPE: XR Hip Limited LT, FL guidance operating room DATE OF EXAM: 06/25/2023 Comparison: None Clinical History: 77-year-old male LEFT ANTERIOR HIP Findings: LEFT anterior hip replacement. FL time 25 seconds. DAP 0.[address] Carlson. 6 images sent into PACS
--- NOTE | 2023-06-25 17:22 | P.OP ---
Date of Procedure: 06/25/23 Preoperative Diagnosis: 1. Severe left hip osteoarthritis 2. Parkinson's disease 3. Coronary artery disease Postoperative Diagnosis: Same Procedure(s) Performed: Left direct anterior total hip arthroplasty Implants: 1. [place] Trident II Acetabular Cup, Size #56 2. [place] Insignia Size #8 Femoral Stem, High Offset 3. Dual Mobility OD 46 mm, ID 28 mm, -4 mm neck Anesthesia: ABIMBOLA, regional Surgeon: Abdoulaye Carlson Injection Operator #1: Annamaria Lucas Estimated Blood Loss (ml): 200 IV fluids (ml): 800 Pathology: none sent Condition: stable Disposition: PACU Indications for Procedure: I had a long discussion with the patient in the office on the potential risks and complications of an elective total hip replacement through a direct anterior approach. Risks discussed include, but are certainly not limited to, risks from anesthesia, superficial infection requiring local wound care or antibiotics, deep lali-prosthetic joint infection and the treatment required to eradicate infection, intraoperative fracture, postoperative periprosthetic fracture, damage to local blood vessels or nerves particularly the lateral femoral cutaneous nerve, delayed wound healing requiring local wound care or possibly surgical debridement, hip dislocation, leg length discrepancy, soft tissue irritation around the total hip implant such as iliopsoas tendinitis or trochanteric bursitis, wear and osteolysis from the implants, squeaking or audible noises, groin pain, thigh pain, heterotopic ossification, stiffness, aseptic loosening of the implants, dissatisfaction with surgical outcome, need for revision surgery, DVT, PE, swelling of the operative extremity, acute coronary event, stroke, failure to thrive, and possibly loss of life or limb. The patient understands that while these are the most common complications after an elective hip replacement there are certainly other less common complications possible. They were given ample time to ask questions regarding the potential complications of a hip replacement. Following our discussion the patient provided their verbal and written consent to go forward with an elective total hip replacement. Description of Procedure: The patient was identified in the preoperative holding area and the correct hip was marked with my initials. I reviewed the procedure and consent with the patient. All of their questions were answered. The patient was then brought back into the operating room by anesthesia. While on the [facility] anesthesia was administered by the anesthesia team. Preoperative antibiotics and tranexamic acid were also given. After the patient was under anesthesia I examined their ankles to determine their preoperative leg length discrepancy. The skin over the anterior aspect of the hip was shaved to remove hair over the site of planned incision. Both feet and ankles were padded with webril and boots for the Nebo were applied. The patient was then carefully transferred onto the Nebo table. A perineal post was immediately placed. The arms were placed on arm holders and were well-padded. Both boots were secured to the spars on the Nebo table. The patient was positioned so that the pelvis was centered over the post. Nonsterile drapes were applied. A timeout was performed identifying the correct patient, operative extremity, and procedure. At this point fluoroscopy was brought in to take preoperative images of the pelvis and operative hip. Using the standing AP pelvis from the office as a template, a comparable image was obtained with fluoroscopy. A metallic bar was used to create a bi-ischial line for use as a reference to leg length adjustments during the procedure. Global offset was also measured on both the operative and nonoperative leg. Fluoroscopy was then brought out and a pre-scrub using a chlorhexidine scrub brush was performed. The operative limb was then prepped and draped in the standard sterile fashion. An anterior longitudinal incision was made lateral and distal to the ASIS. The skin and subcutaneous tissues were incised sharply. The underlying tensor fascia was identified and incised in its midportion. The fascia was dissected free from the underlying muscle and the muscle belly was retracted. A blunt tipped cobra retractor was placed over the superior neck under the muscle fibers of the gluteus minimus. The deep enveloping fascia of the tensor was incised. The anterior leash of vessels were then identified and cauterized. The fascia between the rectus and the capsule was then incised and the pre-capsular fat was excised. A second Cobra was placed inferior to the neck. The interval between the rectus and iliocapsularis and the hip capsule was developed and a retractor was placed carefully over the anterior rim of the acetabulum. A T-shaped anterior capsulotomy was performed. The superior capsular leaflet was left in place in the inferior capsular flap was excised. The Cobra retractors were placed intracapsularly. We then made a femoral neck osteotomy according to preoperative and intraoperative templating and confirmed the level of the osteotomy using fluoroscopic imaging. The femoral head was removed, passed off to the back table, and sized. The superior capsular flap was excised. Retractors were placed circumferentially exposing the acetabulum. We then circumferentially debrided the acetabulum free of labrum and osteophytes. The pulvinar was removed to fully visualize the cotyloid fossa. We then sequentially reamed to achieve peripheral fit and excellent bleeding subchondral bone. The socket was thoroughly irrigated. The acetabular component was impacted into the appropriate position using fluoroscopy to guide version, inclination, and depth of insertion taking care to have a comparable image of the AP pelvis to the standing image taken in the office. An excellent press-fit was achieved and final position was confirmed using fluoroscopy. The press fit was augmented with bony cancellus dome screws. The liner was then impacted into the socket. Attention was then turned to the femur. The remnant dorsal lateral capsule was excised. The short external rotators were visible and protected. A bone hook was used to confirm appropriate translation of the trochanter away from the acetabulum. The leg was then extended and adducted and the bone hook was used to elevate the femur for broaching. A box osteotome and blunt tipped canal sound was then utilized to gain access to the femoral canal. We then sequentially broached the femur in appropriate anteversion until excellent torsional stability was achieved. The neck cut was brought flush to the trial broach with a calcar planar. A trial neck and head were then placed onto the broach and the hip was atraumatically reduced under direct visualization. External rotation to 90 was performed to assess stability. Fluoroscopy was brought in. An AP and lateral fluoroscopic image of the proximal femur was obtained to assess position and fill of the trial broach. An AP of the pelvis was then obtained and matched to the preoperative image taken. A bi-ischial bar was then placed and measurements were taken to assess changes in length and offset. The hip was then carefully dislocated, the proximal femur was exposed, and the trial implants were removed. The wound and proximal femur was thoroughly irrigated using sterile saline and pulsatile lavage. The final femoral implant was dispensed and gently tapped into place generating an excellent press-fit. The trunnion was cleansed and the final head was tapped into place to engage the Abreu taper. The acetabulum was irrigated and visualized to be free of debris. The hip was carefully reduced. Stability was checked clinically with external rotation to 90 and there was no evidence of instability. Final fluoroscopic images were taken. The wound was then thoroughly irrigated and soaked with a dilute Betadine rinse for 3 minutes. 3 L of sterile saline was irrigated through the wound using pulsatile lavage. Local anesthetic cocktail was injected into the soft tissues around the surgical field. The wound was then closed in layers. A sterile dressing was placed over the surgical incision. The drapes were taken down and the patient was carefully transferred off of the Nebo table. Following removal of the boots the leg lengths felt acceptable. The patient was then taken to recovery room having tolerated the procedure well. Annamraia Lucas PA-C was required as a skilled campaign assistant due to complexity of surgery for patient positioning, draping, exposure, retraction, closure of wound, application of dressing, and moving the patient. PLAN: The patient can weight-bear as tolerated on the operative extremity. DVT prophylaxis with aspirin 81 mg twice a day based on preoperative risk stratification. Physical therapy for gait training. Leave surgical dressing in place. Internal medicine for perioperative medical management.
[2023-06-25] MEDS: HYDROcodone/APAP 7.5-325MG 1 EACH TAB PO PRN (18:51)
[2023-06-25] MEDS: SENNOSIDES-DOCUSATE SODIUM 1 EACH TAB PO SCH (20:09)
[2023-06-25] MEDS: ASPIRIN 81 MG PO SCH (20:09)
--- NOTE | 2023-06-25 21:05 | P.ANPRN ---
Procedure Note - Anesthesia - Nerve Block Performed Left Other (see comment) Single Time Out Performed: Yes (1219) Date of Procedure: 06/25/23 Procedure Start Time: 12:20 Procedure Stop Time: 12:25 Location of Patient: PreOp Indication: Acute Post-Operative Pain, Requested by Surgeon Sedation Type: Sedate with meaningful contact maintained Preparation: Sterile Prep, Sterile Dressing Position: Supine Catheter: None Needle Types: Pajunk Needle Gauge: 21 Ultrasound used to visualize needle placement: Yes Ultrasound used to observe medication spread: Yes Injectate: 0.5% Ropivacaine (see comment for volume) (21 mL of block solution containing 20 ML of 0.5% ropivacaine mixed with 4 MG of dexamethasone) Blood Aspirated: No Pain Paresthesia on Injection Noted: No Resistance on Injection: Normal Image Stored and Saved: Yes Events: Uneventful and Well Tolerated
[2023-06-26] MEDS: SODIUM CHLORIDE 0.9% 1,000 ML IV ONE (02:30)
--- NOTE | 2023-06-26 07:56 | P.PN ---
Subjective Patient did relatively well this morning. He has only mild discomfort in his left hip. He denies chest pain or shortness of breath. Per nursing the patient has had low blood pressure overnight. Objective - Vital Signs Vital signs: Vital Signs Temp 98.4 F 06/26/23 06:55 Pulse 72 06/26/23 06:55 Resp 16 06/26/23 06:55 BP 101/57 06/26/23 06:55 Pulse Ox 95 06/26/23 06:55 FiO2 Intake & Output 06/25/23 06/26/23 06/26/23 18:59 06:59 18:59 Intake Total 1850 240 Output Total 200 Balance 1650 240 Weight 98.6 kg Intake: IV 1550 Oral 300 240 Output: Estimated Blood Loss 200 Other: Voiding Method Urinal # Voids 0 3 - Exam The patient is resting comfortably in their bed. A focused examination of the operative hip was performed. On inspection there is a clean-appearing dressing over the anterior hip with no drainage or strike through. There is mild swelling throughout the thigh. Femoral nerve function is intact. The patient is able to actively dorsiflex and plantarflex their ankle and toes. Sensation is intact to light touch throughout the foot. The foot is warm and well-perfused with brisk capillary refill. Assessment and Plan Assessment: Postoperative day #1 status post left direct anterior total hip arthroplasty Parkinson's disease Plavix Plan: 1. Weight bear as tolerated on the operative extremity, up with assistance and a walker 2. DVT prophylaxis with aspirin 81 mg BID for 1 week, then can resume Plavix and normal aspirin dose 3. 2 doses of post operative antibiotics 4. Leave surgical dressing in place 5. Internal medicine for lali-operative medical management 6. Physical therapy for gait training and mobilization 7. Dispo: Given the patient's age, history of Parkinson's disease, low blood pressure, and mild confusion this morning by to plan on keeping him at least another night in the hospital. He may need discharge to subacute rehab or shelter facility depending on how he does.
[2023-06-26] MEDS: NON FORMULARY DRUG (Icosapent Ethyl [Icosapent Ethyl] 1 GM Capsule) PO SCH (08:31)
[2023-06-26] MEDS: CLOPIDOGREL 75 MG TAB PO SCH (08:34)
[2023-06-26] MEDS: CARBIDOPA-LEVODOPA 25-100 MG 1 EACH TAB PO SCH (08:34)
[2023-06-26] MEDS: FAMOTIDINE 20 MG TAB PO SCH (08:34)
[2023-06-26] MEDS: busPIRone HCl 5 MG TAB PO SCH (08:34)
[2023-06-26] MEDS: LEVOTHYROXINE 50 MCG TAB PO SCH (08:41)
[2023-06-26] MEDS ORDERED: METOPROLOL TARTRATE 25 MG TAB PO SCH (09:00)
[2023-06-26 10:50] LABS: HCT 29.7 % (39.6-50.0); HGB 9.7 g/dL (13.0-17.0); MCH 30.6 pg (27.0-32.0); MCHC 32.7 g/dL (32.0-37.0); MCV 93.7 FL (80.0-97.0); Mean Platelet Volume 10.1 FL (9.5-12.2); NRBC Per 100 WBC 0 X 10*3/uL (0.00-0.01); Platelet Count 215 X 10*3/uL (140-440); RBC 3.17 X 10*6/uL (4.40-5.60); RDW 12.4 % (11.5-14.5); WBC 16.32 X 10*3/uL (4.50-10.00)
--- NOTE | 2023-06-26 11:20 | P.CONS ---
History of Present Illness - Reason for Consult Consult date: 06/26/23 parkinsons disease Requesting physician: Abdoulaye Carlson - History of Present Illness Patient is a 77-year-old male with hypertension, coronary artery disease, Parkinson's disease, memory impairment, hypothyroidism, dyslipidemia, asthma, and obstructive sleep apnea who presented for elective post left direct anterior hip replacement. He tolerated the procedure well without any postoperative com plications. Postoperatively overnight he developed low blood pressure down to 75/40 which responded well to 1 L bolus. Patient seen and examined at bedside. He denies any pain. He denies any nausea or vomiting. He thinks it is 2024 in September. Therefore thorough review of all medical records was performed to obtain medical history including preoperative orthopedic consultation, records from primary care office, and records from neurologist that are included in the computer system. Patient denies any lightheadedness, dizziness, cough, shortness of breath, nausea, vomiting. Vital signs reviewed General: nontoxic, no distress, appears at stated age Derm: warm, dry Eyes: EOMI, no lid lag, anicteric sclera, pupils equal round reactive to light ENT: Nose and ears atraumatic Cardiovascular: S1S2 reg, no murmur, no edema Lungs: clear to auscultation bilateral, no rhonchi, no rales, no wheeze, no accessory muscle use Abdominal: soft, nontender to palpation, no guarding Ext: no gross muscle atrophy, no contractures Neuro: CN II-XII grossly intact, No focal neuro deficits Psych: Alert, oriented to self, appropriate affect Assessment/Plan: 77-year-old male status post left direct anterior total hip arthroplasty Parkinson's disease, dementia -Carbidopa levodopa 0.5 tablets 3 times daily -BuSpar 5 mg twice daily -Namenda 10 mg at night Hypertension -Patient had episode of hypotension last night. He recovered with 1 L normal saline bolus. Will hold metoprolol today and continue to monitor blood pressures. Dyslipidemia - transition crestor to lipitor Hypothyroidism -Levothyroxine 50 mcg daily Chronic: History of prostate cancer Prior DVT GERD CHRISTIAN does not use CPAP Chronic back pain Imaging: None reviewed Data Review: Preop labs reviewed: hemoglobin 13.4, Creatinine 0.82, A1c 5.8 Thank you for allowing us to participate in the care of this pleasant patient. Do not hesitate to contact us with questions. Someone can be reached from the [facility] hospitalist group all hours of the day at [phone] or via [employer] serve. Even with This dictation was prepared using [employer] voice recognition software. Though every attempt is made to correct errors during dictation some may still exist. Past Medical History Past Medical History: Cancer, Dementia, Deep Vein Thrombosis (DVT), GERD/Reflux, Hyperlipidemia, Hypertension, Memory Impairment, Osteoarthritis (OA), Sleep Apnea/CPAP/BIPAP, Thyroid Disorder, Vascular Disorder Additional Past Medical History / Comment(s): parkinsons., sleep apnea-does not use machine-pt uses 02 at night only, prostate cancer 2020 no radiation-no chemo, hx hospitalization for bowel blockage, sepsis after prostate surgery with short term memory loss ., beginning dementia., hypothyroid., back pain., spouse takes care of meds and updating health hx. History of Any Multi-Drug Resistant Organisms: None Reported Past Surgical History: Appendectomy, Cholecystectomy, Heart Catheterization With Stent Additional Past Surgical History / Comment(s): RECENT Cardiac cath w/stent to LAD Jan 06, 2023.Arthroscopic knee surgery gertrudis, shoulder surgery, inguinal hernia repair., hx farm accident with compartment syndrome and surgery for removal of clot in leg. PAIN CLINIC PROCEDURES, cataract removal lt eye. Past Anesthesia/Blood Transfusion Reactions: No Reported Reaction Date of Last Stent Placement:: 01-06-23 Past Psychological History: Anxiety, Depression Smoking Status: Never smoker Past Alcohol Use History: None Reported Past Drug Use History: None Reported - Past Family History Mother Family Medical History: No Reported History Sister(s) Family Medical History: Cancer Additional Family Medical History / Comment(s): 1 sisiter breast ca. Another sister uterine cancer. Medications and Allergies Home Medications Medication Instructions Recorded Confirmed Type Aspirin EC [Ecotrin Low Dose] 81 mg PO DAILY 04/25/22 06/25/23 History Carbidopa-Levodopa 25-100 mg 0.5 tab PO TID 04/25/22 06/25/23 History [Sinemet 25-100] Docusate [Colace] 100 mg PO DAILY 04/25/22 06/25/23 History Levothyroxine Sodium [Synthroid] 50 mcg PO DAILY 04/25/22 06/25/23 History Memantine [Namenda] 10 mg PO HS 04/25/22 06/25/23 History busPIRone HCL 5 mg PO BID 04/25/22 06/25/23 History Ascorbic Acid [Vitamin C] 500 mg PO DAILY 05/24/22 06/25/23 History Multivit-Mins/Iron/Folic/Lycop 1 each PO DAILY 05/24/22 06/25/23 History [Centrum Men's Tablet] Vitamin B Complex 1 each PO DAILY 05/24/22 06/25/23 History Famotidine 20 mg PO DAILY 07/16/22 06/25/23 History Acetaminophen [Tylenol Arthritis] 1 - 2 tab PO DIRECTED PRN 11/20/22 06/25/23 History Clopidogrel [Plavix] 75 mg PO DAILY 06/20/23 06/25/23 History Metoprolol Tartrate [Lopressor] 25 mg PO BID 06/20/23 06/25/23 History Nitroglycerin Sl Tabs [Nitrostat] 0.4 mg SUBLINGUAL Q5M PRN 06/20/23 06/25/23 History Rosuvastatin Calcium [Crestor] 40 mg PO HS 06/20/23 06/25/23 History icosapent ethyL [Icosapent Ethyl] 2 cap PO BID 06/20/23 06/25/23 History Aspirin [Adult Low Dose Aspirin EC] 81 mg PO BID 30 Days #60 tab 06/25/23 Rx Sennosides [Senokot] 2 tab PO DAILY PRN #60 tablet 06/25/23 Rx HYDROcodone/APAP 5-325MG [[place] 1 - 2 tab PO Q6HR PRN #32 tab 06/26/23 Rx 5-325] Omeprazole 40 mg PO DAILY #30 cap 06/26/23 Rx Allergies Allergy/AdvReac Type Severity Reaction Status Date / Time Influenza Virus Vaccines Allergy Unknown septic Verified 06/25/23 11:38 Physical Exam Osteopathic Statement: *. No significant issues noted on an osteopathic structural exam other than those noted in the History and Physical/Consult. Vitals: Vital Signs Temp Pulse Resp BP Pulse Ox 06/26/23 04:18 71 107/66 06/26/23 03:30 69 98/60 06/26/23 03:01 68 86/50 06/26/23 02:55 69 103/62 06/26/23 02:42 91/53 06/26/23 02:39 71 98/59 06/26/23 02:32 69 81/45 06/26/23 02:10 80 75/40 06/25/23 20:00 97.5 F L 63 17 119/69 97 06/25/23 19:33 63 119/69 97 06/25/23 19:18 69 122/72 97 06/25/23 19:03 76 137/79 95 06/25/23 18:48 69 123/78 97 06/25/23 18:34 69 124/70 97 06/25/23 18:18 71 132/71 97 06/25/23 18:03 71 138/75 97 06/25/23 17:48 67 124/69 98 06/25/23 17:33 61 137/73 98 06/25/23 17:18 62 132/75 98 06/25/23 17:03 63 128/73 98 06/25/23 16:48 64 145/65 98 06/25/23 16:36 64 122/65 78 L 06/25/23 16:12 59 L 12 115/60 95 06/25/23 15:57 57 L 12 110/58 95 06/25/23 15:42 58 L 12 116/60 96 06/25/23 15:27 61 16 121/61 98 06/25/23 15:12 61 16 105/57 98 06/25/23 14:57 96.8 F L 76 14 112/57 95 06/25/23 12:35 59 L 16 147/65 96 06/25/23 11:47 97.6 F 61 16 149/73 97 Intake and Output 06/25/23 06/26/23 06/26/23 22:59 06:59 14:59 Intake Total 540 Balance 540 Intake: Oral 540 Other: Voiding Method Urinal # Voids 0 3 Weight 98.6 kg Results CBC & Chem 7: 06/26/23 06:44
[2023-06-26 11:34] LABS: Basophils # (A) 0.02 X 10*3/uL (0.00-0.10); Basophils % (A) 0.1 %; Eosinophils # (A) 0 X 10*3/uL (0.04-0.35); Eosinophils % (A) 0 %; Lymphocytes # (A) 1.26 X 10*3/uL (0.90-5.00); Lymphocytes % (A) 7.7 %; Monocytes # (A) 2.09 X 10*3/uL (0.20-1.00); Monocytes % (A) 12.8 %; Neutrophils # (A) 12.89 X 10*3/uL (1.80-7.70); RBC Morphology Normal (Normal)
[2023-06-26] MEDS: MEMANTINE 10 MG TAB PO SCH (20:47)
[2023-06-26] MEDS: ATORVASTATIN 80 MG TAB PO SCH (20:47)
--- NOTE | 2023-06-27 13:27 | P.PN ---
Subjective Progress Note Date: 06/27/23 Patient is more painful today. According to his nurse therapy had a difficult time working with him. At the time of my evaluation is complaining of pain in the left hip. He is still confused. Objective - Vital Signs Vital signs: Vital Signs Temp 98.2 F 06/27/23 07:55 Pulse 89 06/27/23 08:00 Resp 17 06/27/23 08:00 BP 118/69 06/27/23 07:55 Pulse Ox 97 06/27/23 07:55 FiO2 Intake & Output 06/26/23 06/27/23 06/27/23 18:59 06:59 18:59 Intake Total 900 Balance 900 Intake: Oral 900 Other: Voiding Method Urinal Toilet Toilet # Voids 3 1 - Exam The patient is resting comfortably in bed. He appears in mild distress secondary to pain. He'll answer questions. On inspection of the left hip there is no intact dressing. There is mild swelling in the leg. The thigh is soft. Femoral nerve function is intact. The patient is able to actively plantar flex and dorsiflex his ankle and toes. - Labs CBC & Chem 7: 06/26/23 06:44 Assessment and Plan Assessment: Postoperative day #2 status post left direct anterior total hip arthroplasty Parkinson's disease Mild dementia at baseline Plan: The patient continues to have confusion and didn't do as well therapy today. They're in the patient's age and multiple medical comorbidities including Parkinson's disease and mild dementia I think the patient would be better served being discharged to subacute nursing or rehab. Physical therapy and occupational therapy reevaluating the patient and discharge planning will proceed accordingly. Continue treatment as outlined previously.
[2023-06-27] MEDS: ONDANSETRON 4 MG/2 ML VIAL IVP PRN (16:06)
[2023-06-27] MEDS: HYDROcodone/APAP 7.5-325MG 1 EACH TAB PO PRN (17:28)
--- NOTE | 2023-06-27 18:04 | P.PN ---
Subjective Progress Note Date: 06/27/23 (delayed charting seen at 1030) Patient is a 77-year-old male with hypertension, coronary artery disease, Parkinson's disease, memory impairment, hypothyroidism, dyslipidemia, asthma, and obstructive sleep apnea who presented for elective post left direct anterior hip replacement. He tolerated the procedure well without any postoperative complications. Postoperatively overnight he developed low blood pressure down to 75/40 which responded well to 1 L bolus. Patient seen and examined at bedside with present. He is doing much worse today than yesterday. His pain is increased and he is having more difficulty ambulating. They are hoping for discharge to [facility]. Vital signs reviewed General: Nontoxic, no distress, appears at stated age Cardiovascular: S1S2 reg, no murmur Lungs: CTA bilateral, no rhonchi, no rales, no accessory muscle use Abdominal: Soft, nontender to palpation, no guarding Ext: No gross muscle atrophy, no edema b/l lower extremities, no contractures Neuro: CN II-XI grossly intact, no focal neuro deficits Psych: Alert, oriented to self and situation, appropriate affect Assessment/Plan: 77-year-old male status post left direct anterior total hip arthroplasty Parkinson's disease, dementia -Carbidopa levodopa 0.5 tablets 3 times daily -BuSpar 5 mg twice daily -Namenda 10 mg at night - Plavix 75 mg daily, ASA 81 mg BID Acute blood loss anemia - anticipated outcome of surgery - repeat CBC in AM - transfuse if HgB <7 Hypertension -BP still low normal continue to hold metoprolol today and continue to monitor blood pressures. Dyslipidemia - lipitor Hypothyroidism -Levothyroxine 50 mcg daily Chronic: History of prostate cancer Prior DVT GERD CHRISTIAN does not use CPAP Chronic back pain Imaging: None new Data Review: Labs reviewed from 06/25 show white blood cell count 16.32, hemoglobin 9.7 preop hemoglobin 13.5 Thank you for allowing us to participate in the care of this pleasant patient. Do not hesitate to contact us with questions. Someone can be reached from the [facility] hospitalist group all hours of the day at [phone] or via [employer] serve. This dictation was prepared using [employer] voice recognition software. Though every attempt is made to correct errors during dictation some may still exist. Objective - Vital Signs Vital signs: Vital Signs Temp 98.2 F 06/27/23 07:55 Pulse 89 06/27/23 08:00 Resp 17 06/27/23 08:00 BP 118/69 06/27/23 07:55 Pulse Ox 97 06/27/23 07:55 FiO2 Intake & Output 06/26/23 06/27/23 06/27/23 18:59 06:59 18:59 Intake Total 900 Balance 900 Intake: Oral 900 Other: Voiding Method Urinal Toilet Toilet # Voids 3 1 - Labs CBC & Chem 7: 06/26/23 06:44
--- NOTE | 2023-06-28 08:35 | P.PN ---
Subjective Patient is doing better today. He is still painful in the left hip and confused that states he feels much better. No acute events per nursing other than low- grade temperatures. Objective - Vital Signs Vital signs: Vital Signs Temp 98.7 F 06/28/23 01:10 Pulse 94 06/28/23 01:00 Resp 14 06/27/23 20:00 BP 132/74 06/28/23 01:00 Pulse Ox 97 06/28/23 01:00 FiO2 Intake & Output 06/27/23 06/28/23 06/28/23 18:59 06:59 18:59 Other: Voiding Method Toilet Toilet # Voids 4 3 - Exam The patient is resting comfortably in their bed. A focused examination of the operative hip was performed. On inspection there is a clean-appearing dressing over the anterior hip with no drainage or strike through. There is mild swelling throughout the thigh. Femoral nerve function is intact. The patient is able to actively dorsiflex and plantarflex their ankle and toes. Sensation is intact to light touch throughout the foot. The foot is warm and well-perfused with brisk capillary refill. - Labs CBC & Chem 7: 06/26/23 06:44 Assessment and Plan Assessment: Postoperative day #3 status post left direct anterior total hip arthroplasty Parkinson's disease Mild baseline dementia Postoperative delirium Plan: 1. Weight bear as tolerated on the operative extremity, up with assistance and a walker 2. DVT prophylaxis with aspirin 81 mg BID 3. 2 doses of post operative antibiotics 4. Leave surgical dressing in place 5. Internal medicine for lali-operative medical management 6. Physical therapy for gait training and mobilization 7. The patient's low-grade fever is likely due to atelectasis and would encourage getting up out of bed to chair and using incentive spirometer. We'll concern for infectious etiology of his low-grade temperature 8. The patient's elevated white blood count from postoperative day #1 is likely reactive secondary to surgery and is unlikely infectious from his hip 1 day after surgery. 9. Dispo: Due to the patient's Parkinson's disease, mild dementia, delirium, and other medical comorbidities he will likely need care home or subacute rehab following discharge, planning for this is in process.
--- NOTE | 2023-06-28 12:31 | XR ---
EXAMINATION TYPE: XR abdomen 1V DATE OF EXAM: 06/28/2023 Comparison: None Clinical History: 77-year-old male constipation Findings: Cholecystectomy clips. No evidence for free intraperitoneal air. Lung bases are clear. No dilated small bowel or differential air-fluid levels. There is moderate scattered stool throughout the colon. Air extends distally to the rectum. 7 mm calcific density right mid abdomen. Moderate degenerative change right hip. Partially visualized left total hip arthroplasty. Impression: 1. No evidence for free air or bowel obstruction. 2. Moderate overall stool burden. 3. Possible 7 mm nonobstructive right renal stone.
[2023-06-28 13:00] LABS: Basophils # (A) 0.02 X 10*3/uL (0.00-0.10); Basophils % (A) 0.2 %; Eosinophils # (A) 0.21 X 10*3/uL (0.04-0.35); Eosinophils % (A) 1.8 %; HCT 23.4 % (39.6-50.0); HGB 7.6 g/dL (13.0-17.0); Lymphocytes # (A) 1.06 X 10*3/uL (0.90-5.00); Lymphocytes % (A) 9.1 %; MCH 30.9 pg (27.0-32.0); MCHC 32.5 g/dL (32.0-37.0); MCV 95.1 FL (80.0-97.0); Mean Platelet Volume 10.3 FL (9.5-12.2); Monocytes % (A) 15.5 %; NRBC Per 100 WBC 0 X 10*3/uL (0.00-0.01); Neutrophils # (A) 8.51 X 10*3/uL (1.80-7.70); Neutrophils % (A) 73.1 %; Platelet Count 195 X 10*3/uL (140-440); RBC 2.46 X 10*6/uL (4.40-5.60); RDW 12.8 % (11.5-14.5); WBC 11.64 X 10*3/uL (4.50-10.00)
--- NOTE | 2023-06-28 13:39 | P.PN ---
Subjective Progress Note Date: 06/28/23 Patient is a 77-year-old male with hypertension, coronary artery disease, Parkinson's disease, memory impairment, hypothyroidism, dyslipidemia, asthma, and obstructive sleep apnea who presented for elective post left direct anterior hip replacement. He tolerated the procedure well without any postoperative complications. Postoperatively overnight he developed low blood pressure down to 75/40 which responded well to 1 L bolus. Patient seen and examined at bedside with present. Patient seen and examined with present. He is complaining of some abdominal pain. It is periumbilical. No nausea or vomiting. He believes his last bowel movement was on the day of admission. Vital signs reviewed General: Nontoxic, no distress, appears at stated age Cardiovascular: S1S2 reg, no murmur Lungs: CTA bilateral, no rhonchi, no rales, no accessory muscle use Abdominal: Soft, nontender to palpation, no guarding Ext: No gross muscle atrophy, no edema b/l lower extremities, no contractures Neuro: CN II-XI grossly intact, no focal neuro deficits Psych: Alert, oriented to self and situation, appropriate affect Assessment/Plan: 77-year-old male status post left direct anterior total hip arthroplasty Parkinson's disease, dementia -Carbidopa levodopa 0.5 tablets 3 times daily -BuSpar 5 mg twice daily -Namenda 10 mg at night - Plavix 75 mg daily, ASA 81 mg BID Acute blood loss anemia - anticipated outcome of surgery - check iron studies - repeat CBC in AM - transfuse if HgB <7 Abdominal pain likely secondary to constipation -Prune juice, MiraLAX 17 g x 1 now - Kub ordered and constipation confirmed Hypertension - improved - resume metorpolol 25 mg PO BID Dyslipidemia - lipitor Hypothyroidism -Levothyroxine 50 mcg daily Chronic: History of prostate cancer Prior DVT GERD CHRISTIAN does not use CPAP Chronic back pain Imaging: Abdominal x-ray ordered and reviewed by myself which shows moderate stool burden Data Review: CBC reviewed from today and remarkable for white blood cell count 11.64 and hemoglobin 7.6 Thank you for allowing us to participate in the care of this pleasant patient. Do not hesitate to contact us with questions. Someone can be reached from the [facility] hospitalist group all hours of the day at [phone] or via [employer] serve. This dictation was prepared using [employer] voice recognition software. Though every attempt is made to correct errors during dictation some may still exist. Objective - Vital Signs Vital signs: Vital Signs Temp 99.4 F 06/28/23 07:30 Pulse 99 06/28/23 07:30 Resp 17 06/28/23 07:30 BP 121/75 06/28/23 07:30 Pulse Ox 95 06/28/23 07:30 FiO2 Intake & Output 06/27/23 06/28/23 06/28/23 18:59 06:59 18:59 Other: Voiding Method Toilet Toilet Toilet # Voids 4 3 - Labs CBC & Chem 7: 06/28/23 07:11 Labs: Abnormal Lab Results - Last 24 Hours (Table) 06/28/23 Range/Units 07:11 WBC 11.64 H (4.50-10.00) X 10*3/uL RBC 2.46 L (4.40-5.60) X 10*6/uL Hgb 7.6 L (13.0-17.0) g/dL Hct 23.4 L (39.6-50.0) % Neutrophils # 8.51 H (1.80-7.70) X 10*3/uL Monocytes # 1.80 H (0.20-1.00) X 10*3/uL
[2023-06-28] MEDS: polyethylene glycoL 3350 17 GM POWD.PACK PO STA (13:50)
[2023-06-28] MEDS: METOPROLOL TARTRATE 25 MG TAB PO SCH (20:51)
[2023-06-29 06:52] LABS: HCT 22.3 % (39.0-53.0); MCH 32.9 pg (25.0-35.0); MCHC 35.9 g/dL (31.0-37.0); MCV 91.5 fL (80.0-100.0); Mean Platelet Volume 8.1; Platelet Count 247 k/uL (150-450); RBC 2.44 m/uL (4.30-5.90); RDW 13.1 % (11.5-15.5); WBC 12.7 k/uL (3.8-10.6)
[2023-06-29 09:03] LABS: % Iron Saturation 7.34 (15.00-50.00)
[2023-06-29] MEDS: polyethylene glycoL 3350 17 GM POWD.PACK PO STA (11:36)
--- NOTE | 2023-06-29 12:11 | P.PN ---
Subjective Progress Note Date: 06/29/23 Patient is a 77-year-old male with hypertension, coronary artery disease, Parkinson's disease, memory impairment, hypothyroidism, dyslipidemia, asthma, and obstructive sleep apnea who presented for elective post left direct anterior hip replacement. He tolerated the procedure well without any postoperative complications. Postoperatively overnight he developed low blood pressure down to 75/40 which responded well to 1 L bolus. Patient seen and examined at bedside. He reports that he is still having some abdominal pain. Its much better than yesterday. Pain in his hip is well- controlled. He denies any nausea or vomiting. No other complaints currently. Vital signs reviewed General: Nontoxic, no distress, appears at stated age Cardiovascular: S1S2 reg, no murmur Lungs: CTA bilateral, no rhonchi, no rales, no accessory muscle use Abdominal: Soft, nontender to palpation, no guarding Ext: No gross muscle atrophy, no edema b/l lower extremities, no contractures Neuro: CN II-XI grossly intact, no focal neuro deficits Psych: Alert, oriented to self and situation, appropriate affect Assessment/Plan: 77-year-old male status post left direct anterior total hip arthroplasty Parkinson's disease, dementia -Carbidopa levodopa 0.5 tablets 3 times daily -BuSpar 5 mg twice daily -Namenda 10 mg at night - Plavix 75 mg daily, ASA 81 mg BID Acute blood loss anemia Iron deficiency anemia - Start oral iron 325 mg once daily. - anticipated outcome of surgery - repeat CBC as outpatient in 1 week.. Constipation -Prune juice, MiraLAX 17 g again today Hypertension - Metorpolol 25 mg PO BID Dyslipidemia - lipitor Hypothyroidism -Levothyroxine 50 mcg daily Chronic: History of prostate cancer Prior DVT GERD CHRISTIAN does not use CPAP Chronic back pain Imaging: None new Data Review: Labs reviewed from today include CBC which is remarkable for white blood cell count 12.7 and hemoglobin of 8. Iron studies reviewed which show relative iron deficiency. Thank you for allowing us to participate in the care of this pleasant patient. Do not hesitate to contact us with questions. Someone can be reached from the [facility] hospitalist group all hours of the day at [phone] or via [employer] serve. This dictation was prepared using [employer] voice recognition software. Though every attempt is made to correct errors during dictation some may still exist. Objective - Vital Signs Vital signs: Vital Signs Temp 98.8 F 06/29/23 07:12 Pulse 86 06/29/23 07:12 Resp 16 06/29/23 07:12 BP 110/72 06/29/23 07:12 Pulse Ox 94 L 06/29/23 07:12 FiO2 Intake & Output 06/28/23 06/29/23 06/29/23 17:59 06:59 18:59 Other: Voiding Method # Voids # Bowel Movements - Labs CBC & Chem 7: 06/29/23 05:38 Labs: Abnormal Lab Results - Last 24 Hours (Table) 06/28/23 06/28/23 06/29/23 Range/Units 07:11 14:20 05:38 WBC 11.64 H 12.7 H (4.50-10.00) X 10*3/uL RBC 2.46 L 2.44 L (4.40-5.60) X 10*6/uL Hgb 7.6 L 8.0 L (13.0-17.0) g/dL Hct 23.4 L 22.3 L (39.6-50.0) % Neutrophils # 8.51 H (1.80-7.70) X 10*3/uL Monocytes # 1.80 H (0.20-1.00) X 10*3/uL Iron 16 L (65-175) UG/DL TIBC 218 L (228-460) UG/DL % Saturation 7.34 L (15.00-50.00) Transferrin 156.0 L (204.0-354.0) mg/dL
--- NOTE | 2023-06-29 12:28 | P.PN ---
Progress Note - Text Progress Note Date: 06/29/23 Orthopedics: History of present illness: Patient is a very pleasant 77-year-old male who is seen and examined at bedside with his present. He is status post left total hip arthroplasty with direct anterior approach performed on 06/25/2023. Patient has had some improvement of his pain in his left hip. He does have difficulty with mobilization. He is requiring assistance. Currently, patient is planning for discharge to a rehabilitation facility once medically cleared and authorized by insurance. They are hoping this is approved for tomorrow, 06/30/2023. Funez catheter has been discontinued. Patient states he is voiding. He does not have much of an appetite. He is passing gas. He does not have abdominal pain but has only had a small bowel movement. He is receiving multiple medications to help facilitate a bowel movement including milk of magnesia, MiraLAX, and Senokot. He states he is passing some gas. Patient continues to be seen examined by medicine for his multiple other medical diagnoses including Parkinson's disease dementia, hypertension, dyslipidemia, hypothyroidism, constipation, hypothyroidism, and acute blood loss anemia. He has remained afebrile since yesterday. Patient is currently on anticoagulation with Plavix 75 mg daily and aspirin 81 mg twice daily. Physical Exam Total Hip Arthroplasty: Status post surgical day number 4 Patient is examined sitting up in bed Patient is awake and alert, and oriented 3 Vital signs stable Good chest excursion with deep inspiration and expiration Abdomen soft nontender; no significant firmness to palpation No signs or symptoms of DVT; no calf pain Lower extremity cuffs not currently in place bilaterally Dressing of the left hip is clean, dry, and intact; no erythema, purulence, or signs of infection Some generalized swelling around the left hip and thigh area Dorsiflexion, plantarflexion, and extensor hallucis longus positive left lower extremity Neurovascularly intact bilateral lower extremities Assessment: Status post left total hip arthroplasty with direct anterior approach Left hip pain Parkinson's disease dementia Constipation Hypertension Hyperlipidemia Anticoagulation use with Plavix 75 mg and aspirin 81 mg Dyslipidemia Hypothyroidism Acute blood loss anemia Plan: 1. Patient to continue to be weight-bear as tolerated on the lower extremity with the assistance of a walker; patient may work with physical therapy to increase mobility and ambulation 2. Continue pain control 3. Keep surgical dressing intact over the left hip 4. Medicine to continue following the patient for their other medical diagnoses 5. Continue with with anticoagulation therapy with Plavix 75 mg and aspirin 81 mg 6. We'll continue to follow the patient. Patient will remain in the hospital over the weekend with plans to discharge to a rehab facility this coming 06/30/2023, once cleared by medicine and authorization has been received. 7. Patient can follow-up with Dr. Carlson at [facility] on 07/09/2023 as scheduled following discharge
--- NOTE | 2023-06-30 07:47 | P.DS ---
Providers Date of admission: 06/26/23 13:01 Attending physician: Abdoulaye Carlson Consults: 06/25/23 15:07 Consult Physician Routine Consulting Provider: Rosio Norris Consult Reason/Comments: medical management Do you want consulting provider notified?: Yes Primary care physician: Jeff Williamson MD Hospital Course: The patient is very pleasant 77-year-old male multiple medical problems was adm itted under my care last Friday for a total hip replacement. Following an uncomplicated surgery transferred to the orthopedic floor. He was transitioned from IV to oral pain medication. He received 2 doses of postoperative antibiotics. Internal medicine was consulted and assisted with his perioperative medical management. Due to the patient's age, dementia, and Parkinson's disease and recommendation was made for discharge to rehab. Arrangements were made. The patient was ultimately cleared for discharge. Plan - Discharge Summary Discharge Rx Participant: No New Discharge Prescriptions: New Sennosides [Senokot] 2 tab PO DAILY PRN #60 tablet PRN Reason: Constipation Omeprazole 40 mg PO DAILY #30 cap HYDROcodone/APAP 5-325MG [[place] 5-325] 1 - 2 tab PO Q6HR PRN #32 tab PRN Reason: Pain No Action Aspirin EC [Ecotrin Low Dose] 81 mg PO DAILY Levothyroxine Sodium [Synthroid] 50 mcg PO DAILY Ascorbic Acid [Vitamin C] 500 mg PO DAILY Multivit-Mins/Iron/Folic/Lycop [Centrum Men's Tablet] 1 each PO DAILY Famotidine 20 mg PO DAILY Metoprolol Tartrate [Lopressor] 25 mg PO BID Clopidogrel [Plavix] 75 mg PO DAILY Rosuvastatin Calcium [Crestor] 40 mg PO HS Docusate [Colace] 100 mg PO DAILY Carbidopa-Levodopa 25-100 mg [Sinemet 25-100] 0.5 tab PO TID Memantine [Namenda] 10 mg PO HS busPIRone HCL 5 mg PO BID Vitamin B Complex 1 each PO DAILY Acetaminophen [Tylenol Arthritis] 1 - 2 tab PO DIRECTED PRN PRN Reason: Pain Nitroglycerin Sl Tabs [Nitrostat] 0.4 mg SUBLINGUAL Q5M PRN PRN Reason: Chest Pain icosapent ethyL [Icosapent Ethyl] 2 cap PO BID Discharge Medication List Aspirin EC [Ecotrin Low Dose] 81 mg PO DAILY 04/25/22 [History] Carbidopa-Levodopa 25-100 mg [Sinemet 25-100] 0.5 tab PO TID 04/25/22 [History] Docusate [Colace] 100 mg PO DAILY 04/25/22 [History] Levothyroxine Sodium [Synthroid] 50 mcg PO DAILY 04/25/22 [History] Memantine [Namenda] 10 mg PO HS 04/25/22 [History] busPIRone HCL 5 mg PO BID 04/25/22 [History] Ascorbic Acid [Vitamin C] 500 mg PO DAILY 05/24/22 [History] Multivit-Mins/Iron/Folic/Lycop [Centrum Men's Tablet] 1 each PO DAILY 05/24/22 [History] Vitamin B Complex 1 each PO DAILY 05/24/22 [History] Famotidine 20 mg PO DAILY 07/16/22 [History] Acetaminophen [Tylenol Arthritis] 1 - 2 tab PO DIRECTED PRN 11/20/22 [History] Clopidogrel [Plavix] 75 mg PO DAILY 06/20/23 [History] Metoprolol Tartrate [Lopressor] 25 mg PO BID 06/20/23 [History] Nitroglycerin Sl Tabs [Nitrostat] 0.4 mg SUBLINGUAL Q5M PRN 06/20/23 [History] Rosuvastatin Calcium [Crestor] 40 mg PO HS 06/20/23 [History] icosapent ethyL [Icosapent Ethyl] 2 cap PO BID 06/20/23 [History] Sennosides [Senokot] 2 tab PO DAILY PRN #60 tablet 06/25/23 [Rx] HYDROcodone/APAP 5-325MG [[place] 5-325] 1 - 2 tab PO Q6HR PRN #32 tab 06/26/23 [Rx] Omeprazole 40 mg PO DAILY #30 cap 06/26/23 [Rx] Follow up Appointment(s)/Referral(s): [facility] [[facility]] - 1-2 Days ([facility] will call you to schedule your in home physical therapy visits. ) Abdoulaye Carlson MD [Medical Doctor] - 07/09/23 10:45 am Activity/Diet/Wound Care/Special Instructions: 1. Weight-bear as tolerated on your operative extremity unless instructed otherwise. Use a walker or other assistive device to ambulate. 2. Leave surgical dressing in place. If your dressing becomes saturated with blood, there is drainage, or the dressing becomes loose please contact the office. 3. It is okay to shower with your surgical dressing, but do not submerge in water (no hot tubs, bath's, swimming etc.) 4. Make sure to take her blood clot prevention medication as prescribed (aspirin, Eliquis, Xarelto, and Plavix are commonly prescribed medications for blood clot prevention) 5. While taking [place] or Percocet for pain make sure you're taking a stool softener (Colace) and drink lots of water. 6. Keep all follow-up appointments as scheduled. You will usually be seen in 1-2 weeks following surgery. 7. Please contact the office with any questions or concerns [phone] Discharge Disposition: TRANSFER TO SNF/ECF
[2023-06-30 08:13] VITALS: BP 119/73; PULSE 75; RESP 17; TEMP 98.4
[2023-06-30 09:39] LABS: Basophils # (A) 0.03 X 10*3/uL (0.00-0.10); Basophils % (A) 0.3 %; Eosinophils # (A) 0.95 X 10*3/uL (0.04-0.35); Eosinophils % (A) 8.9 %; HCT 24.1 % (39.6-50.0); MCH 30.5 pg (27.0-32.0); MCHC 33.2 g/dL (32.0-37.0); Mean Platelet Volume 9.9 FL (9.5-12.2); Monocytes # (A) 1.31 X 10*3/uL (0.20-1.00); Monocytes % (A) 12.3 %; NRBC Per 100 WBC 0.03 X 10*3/uL (0.00-0.01); Platelet Count 302 X 10*3/uL (140-440); RBC 2.62 X 10*6/uL (4.40-5.60); RBC Morphology Normal (Normal); RDW 12.7 % (11.5-14.5); WBC 10.64 X 10*3/uL (4.50-10.00)
--- NOTE | 2023-06-30 14:15 | P.PN ---
Subjective Progress Note Date: 06/30/23 Subjective: Patient seen and examined at bedside. No acute events overnight. Pertinent positives and negatives as discussed above, a complete review of systems was performed and all other systems are negative. Vitals Signs Reviewed. General: Nontoxic, no distress, appears at stated age Cardiovascular: S1S2 reg, no murmur Lungs: CTA bilateral, no rhonchi, no rales, no accessory muscle use Abdominal: Soft, nontender to palpation, no guarding Ext: No gross muscle atrophy, no edema b/l lower extremities, no contractures Neuro: CN II-XI grossly intact, no focal neuro deficits Psych: Alert, oriented to self and situation, appropriate affect Data Reviewed Today: Pertinent Labs: WBC 10.64, hemoglobin 8 Imaging: No new imaging Assessment and Plan: Parkinson's disease, dementia -Carbidopa levodopa 0.5 tablets 3 times daily -BuSpar 5 mg twice daily -Namenda 10 mg at night - Plavix 75 mg daily, ASA 81 mg BID Acute blood loss anemia Iron deficiency anemia - Start oral iron 325 mg once daily. - anticipated outcome of surgery - repeat CBC as outpatient in 1 week. Constipation -Senna Hypertension - Metorpolol 25 mg PO BID Dyslipidemia - lipitor 80 Hypothyroidism -Levothyroxine 50 mcg daily Chronic: History of prostate cancer Prior DVT GERD CHRISTIAN does not use CPAP Chronic back pain Patient is medically optimized Thank you for allowing us to participate in the care of this pleasant patient. Do not hesitate to contact us with questions. Someone can be reached from the [facility] hospitalist group all hours of the day at [phone] or via [employer]. Objective - Vital Signs Vital signs: Vital Signs Temp 98.4 F 06/30/23 07:15 Pulse 75 06/30/23 07:15 Resp 17 06/30/23 07:15 BP 119/73 06/30/23 07:15 Pulse Ox 97 06/30/23 07:15 FiO2 Intake & Output 06/29/23 06/30/23 06/30/23 18:59 06:59 18:59 Intake Total 120 Balance 120 Intake: Oral 120 Other: # Voids 3 3 - Labs CBC & Chem 7: 06/30/23 05:07 Labs: Abnormal Lab Results - Last 24 Hours (Table) 06/30/23 Range/Units 05:07 WBC 10.64 H (4.50-10.00) X 10*3/uL RBC 2.62 L (4.40-5.60) X 10*6/uL Hgb 8.0 L (13.0-17.0) g/dL Hct 24.1 L (39.6-50.0) % Immature Gran # 0.05 H (0.00-0.04) X 10*3/uL Monocytes # 1.31 H (0.20-1.00) X 10*3/uL Eosinophils # 0.95 H (0.04-0.35) X 10*3/uL NRBC/100 WBC Diff 0.03 H (0.00-0.01) X 10*3/uL
== END 2023-06-30 14:48 | disposition swing bed (61) | DRG 982 ==
LOC: OR 10:52 → 4SSUR 16:13 → OR 06-26 13:01
PROVIDERS: ADMIT Orthopaedic Surgery; ATTEND Orthopaedic Surgery
PROC: 0SRB04A Replacement of Left Hip Joint with Ceramic on Polyethylene Synthetic Substitute, Uncemented, Open Approach (ICD-10-PCS; principal; 2023-06-25 12:30)
DX: I95.81 Postprocedural hypotension (principal); D62 Acute posthemorrhagic anemia; F02.A4 Dementia in other diseases classified elsewhere, mild, with anxiety; F02.A3 Dementia in other diseases classified elsewhere, mild, with mood disturbance; F05 Delirium due to known physiological condition; M16.12 Unilateral primary osteoarthritis, left hip; G20.A1 Parkinson's disease without dyskinesia, without mention of fluctuations; D50.9 Iron deficiency anemia, unspecified; I25.10 Atherosclerotic heart disease of native coronary artery without angina pectoris; F32.A Depression, unspecified; K59.00 Constipation, unspecified; K21.9 Gastro-esophageal reflux disease without esophagitis; I10 Essential (primary) hypertension; E03.9 Hypothyroidism, unspecified; E78.5 Hyperlipidemia, unspecified; J45.909 Unspecified asthma, uncomplicated; G47.33 Obstructive sleep apnea (adult) (pediatric); G89.29 Other chronic pain; Z86.718 Personal history of other venous thrombosis and embolism; Z85.46 Personal history of malignant neoplasm of prostate; Z79.899 Other long term (current) drug therapy; Z79.890 Hormone replacement therapy; Z79.82 Long term (current) use of aspirin; Z79.02 Long term (current) use of antithrombotics/antiplatelets
CPT/HCPCS: 64447; 73501; 74018; 82728; 83540; 83550; 85025; 85027